=== PATIENT | female | born 1980 | race Caucasian/White ===

== ENCOUNTER 2020-07-21 13:12 | Emergency (ER) | payer SELFPAY ==
[~2020-07-21] VITALS: Ht 170.2 cm; Wt 85.0 kg
[~2020-07-21 13:12] MED LIST: HYDR-210 PO; IBUP-1060 PO; LABE100T5 PO; NIFE20CA PO; NIFE30TA15 PO; NITR100C62 PO; TRAM100T7 PO
[2020-07-21 13:39] VITALS: BP 141/86
--- NOTE | 2020-07-21 13:40 | PHYS DOC ---
Past Medical History Past Medical History: Anemia, Depression, Hypertension Past Surgical History: Cholecystectomy, Smoking Status: Current Every Day Smoker Alcohol Use: None Drug Use: None General Adult EDM: Chief Complaint: VAGINAL PROBLEM HPI: HPI: Patient is a 39 year old female who presents with odorous vaginal discharge for the last 2 weeks. She states she does have some vaginal itching. She would like to be treated for chlamydia and gonorrhea today. Patient denies abdominal pain, nausea, vomiting, diarrhea, back pain, urinary symptoms, fever. She has a history of it hypertension, anemia, depression, cholecystectomy, , smoker. Review of Systems: Review of Systems: Constitutional: Denies fever or chills. [] Eyes: Denies change in visual acuity. [] HENT: Denies nasal congestion or sore throat. [] Respiratory: Denies cough or shortness of breath. [] Cardiovascular: Denies chest pain or edema. [] GI: Denies abdominal pain, nausea, vomiting, bloody stools or diarrhea. [] : Denies dysuria. + Vaginal discharge [] Musculoskeletal: Denies back pain or joint pain. [] Integument: Denies rash. [] Neurologic: Denies headache, focal weakness or sensory changes. [] Endocrine: Denies polyuria or polydipsia. [] Lymphatic: Denies swollen glands. [] Psychiatric: Denies depression or anxiety. [] Heart Score: Risk Factors: Risk Factors: DM, Current or recent (<one month) smoker, HTN, HLP, family history of CAD, obesity. Risk Scores: Score 0 - 3: 2.5% MACE over next 6 weeks - Discharge Home Score 4 - 6: 20.3% MACE over next 6 weeks - Admit for Clinical Observation Score 7 - 10: 72.7% MACE over next 6 weeks - Early Invasive Strategies Allergies: Allergies: Allergies Coded Allergies Type Severity Reaction Last Updated Verified No Known Drug Allergies 02/08/14 No Physical Exam: PE: Constitutional: Well developed, well nourished, no acute distress, non-toxic appearance. [] HENT: Normocephalic, atraumatic, bilateral external ears normal, oropharynx moist, no oral exudates, nose normal. [] Eyes: PERRLA, EOMI, conjunctiva normal, no discharge. [] Neck: Normal range of motion, no tenderness, supple, no stridor. [] Cardiovascular:Heart rate regular rhythm, no murmur [] Lungs & Thorax: Bilateral breath sounds clear to auscultation [] Abdomen: Bowel sounds normal, soft, no tenderness, no masses, no pulsatile masses. [] Skin: Warm, dry, no erythema, no rash. [] Back: No tenderness, no CVA tenderness. [] Extremities: No tenderness, no cyanosis, no clubbing, ROM intact, no edema. [] Neurologic: Alert and oriented X 3, normal motor function, normal sensory function, no focal deficits noted. [] Psychologic: Affect normal, judgement normal, mood normal. Normal physical exam [] Current Patient Data: Labs: Laboratory Tests Test 07/21/20 13:22 POC Urine HCG, Qualitative Hcg negative (Negative) EKG: EKG: [] Radiology/Procedures: Radiology/Procedures: [] Course & Med Decision Making: Course & Med Decision Making Pertinent Labs and Imaging studies reviewed. (See chart for details) See HPI. Alert and oriented x4. Speaks in full clear sentences. Ambulatory with a steady gait. Afebrile. Abdomen soft and nontender. Patient is treated for chlamydia and gonorrhea today. She is educated that the results will come back in 48 hours to be called if something is positive. 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 Departure Departure Impression: Primary Impression: Vaginal discharge Additional Impressions: Sexually transmissible disease Bacterial vaginosis Disposition: HOME SELF CARE/HOMELESS Condition: STABLE Referrals: NO PCP (PCP) Patient Instructions: Bacterial Vaginosis, [id number], Sexually Transmitted Disease Additional Instructions: Follow-up with parachute folder if needed. Have your sexual partner treated also. Scripts Metronidazole (METRONIDAZOLE) 500 Mg Tablet 1 TAB PO BID for 7 Days, #14 TAB 0 Refills Prov: VICKI VILLANUEVA APRN 07/21/20 VICKI VILLANUEVA APRN Jul 21, 2020 13:40
[2020-07-21 13:42] LABS: BILIRUBIN,URINE SMALL (NEG); CLARITY,URINE CLEAR; NITRITE,URINE NEGATIVE (NEG); PROTEIN,URINE 100 mg/dL (NEG-TRACE)
[2020-07-21] MEDS ORDERED: AZITHROMYCIN 250 MG TABLET. PO ONE (13:45)
[2020-07-21] MEDS ORDERED: cefTRIAXone IM 250 MG VIAL IM ONE (13:45)
[2020-07-21 13:49] LABS: COLOR,URINE DK YELLOW
[2020-07-21 13:52] LABS: BACTERIA,URINE MANY /HPF (0-FEW)
[2020-07-21 13:56] LABS: RBC,URINE 0 /HPF (0-2)
[2020-07-21] MEDS ORDERED: METR-34 PO (14:08)
[2020-07-23 19:09] LABS: GC PROBE Negative (Negative)
== END 2020-07-21 14:50 | disposition home or self-care (01) ==
LOC: ER 13:12
DX: N76.0 Acute vaginitis (principal); B96.89 Other specified bacterial agents as the cause of diseases classified elsewhere; L29.2 Pruritus vulvae; F32.9 Major depressive disorder, single episode, unspecified; I10 Essential (primary) hypertension; D64.9 Anemia, unspecified; F17.200 Nicotine dependence, unspecified, uncomplicated; Z90.49 Acquired absence of other specified parts of digestive tract; Z98.890 Other specified postprocedural states
CPT/HCPCS: 81001; 81025; 87086; 87491; 87591; 96372; 99284; J0696; Q0111

== ENCOUNTER 2020-09-21 00:11 | Emergency (ER) | payer SELFPAY ==
[~2020-09-21] VITALS: Ht 170.2 cm; Wt 90.9 kg
[~2020-09-21 00:11] MED LIST changes: +METR-34 PO
[2020-09-21 00:25] VITALS: BP 159/106
--- NOTE | 2020-09-21 00:43 | PHYS DOC ---
Past Medical History Past Medical History: Anemia, Depression, Hypertension Past Surgical History: Cholecystectomy, Smoking Status: Current Every Day Smoker Additional Information: 1/2 pack/day Alcohol Use: None Drug Use: None General Adult EDM: Chief Complaint: BACK PAIN - NO INJURY HPI: HPI: Patient is a 39 year old female with past medical history of hypertension and stroke presents for back pain. She states that on evening she noticed a sharp pain on the lower left side of her back all of the sudden. She states that this pain does not radiate anywhere. She denies any injury. She rates his pain as a 7 out of 10. She says she has tried heating pad and this did not help. She states that it is worse when she lays on her left side and on her back, and gets better when she lays on her right side in flexion. She denies any numbness or tingling in any extremity, any loss of bowel or bladder function, any numbness between her legs, any headache, and any trouble walking. She states she has never had pain like this in the past. Review of Systems: Review of Systems: Constitutional: Denies fever or chills. [] Eyes: Denies change in visual acuity. [] HENT: Denies nasal congestion or sore throat. [] Respiratory: Denies cough or shortness of breath. [] Cardiovascular: Denies chest pain or edema. [] GI: Denies abdominal pain, nausea, vomiting, bloody stools or diarrhea. [] : Denies dysuria. [] Musculoskeletal: Positive back pain denies extremity pain [] Integument: Denies rash. [] Neurologic: Denies headache, focal weakness or sensory changes. [] Endocrine: Denies polyuria or polydipsia. [] Lymphatic: Denies swollen glands. [] Psychiatric: Denies depression or anxiety. [] Heart Score: Risk Factors: Risk Factors: DM, Current or recent (<one month) smoker, HTN, HLP, family history of CAD, obesity. Risk Scores: Score 0 - 3: 2.5% MACE over next 6 weeks - Discharge Home Score 4 - 6: 20.3% MACE over next 6 weeks - Admit for Clinical Observation Score 7 - 10: 72.7% MACE over next 6 weeks - Early Invasive Strategies Allergies: Allergies: Allergies Coded Allergies Type Severity Reaction Last Updated Verified I S O L A T I O N *CONTACT* Allergy Unknown 07/31/20 Yes No Known Medication Allergies Allergy Unknown 07/31/20 Yes Physical Exam: PE: Constitutional: Well developed, well nourished, no acute distress, non-toxic appearance. [] HENT: Normocephalic, atraumatic, bilateral external ears normal, oropharynx moist, no oral exudates, nose normal. [] Eyes: PERRLA, EOMI, conjunctiva normal, no discharge. [] Neck: Normal range of motion, no tenderness, supple, no stridor. [] Cardiovascular:Heart rate regular rhythm, no murmur [] Lungs & Thorax: Bilateral breath sounds clear to auscultation [] Abdomen: Bowel sounds normal, soft, no tenderness, no masses, no pulsatile masses. [] Skin: Warm, dry, no erythema, no rash. [] Back: tenderness to palpation over lumbar spine left paraspinal muscles, negative pain over C, T, and L spine spinous processes, reduced ROM of lumbar spine [] Extremities: No tenderness, no cyanosis, no clubbing, ROM intact, no edema. [] Neurologic: Alert and oriented X 3, normal motor function, normal sensory function, no focal deficits noted. [] Psychologic: Affect normal, judgement normal, mood normal. [] Current Patient Data: Labs: Laboratory Tests Test 09/21/20 00:22 POC Urine HCG, Qualitative Hcg negative (Negative) Vital Signs: Vital Signs Date Time Temp Pulse Resp B/P (MAP) Pulse Ox O2 Delivery O2 Flow Rate FiO2 09/21/20 00:25 97.4 89 18 159/106 (123) 100 Room Air 97.4 EKG: EKG: [] Radiology/Procedures: Radiology/Procedures: [] Course & Med Decision Making: Course & Med Decision Making Pertinent Labs and Imaging studies reviewed. (See chart for details) [] Dragon Disclaimer: Librado Disclaimer: This electronic medical record was generated, in whole or in part, using a voice recognition dictation system. Departure Departure Impression: Primary Impression: Back pain Disposition: 01 DC HOME SELF CARE/HOMELESS Condition: STABLE Referrals: NO PCP (PCP) Patient Instructions: Back Pain, Adult Scripts Cyclobenzaprine Hcl (CYCLOBENZAPRINE HCL) 10 Mg Tablet 1 TAB PO QHS, #30 TAB Prov: KIMBERLY COE DO 09/21/20 Lidocaine (Lidocaine PATCH ) 1 Each Adh..patch 1 EACH TP DAILY for FOR LOCAL PAIN, #10 PATCH REMOVE AFTER 12 HOURS Prov: KIMBERLY COE DO 09/21/20 KIMBERLY COE DO Sep 21, 2020 00:43
[2020-09-21] MEDS ORDERED: CYCL10TA2 PO (00:52)
[2020-09-21] MEDS ORDERED: LIDO700A21 TP (00:52)
== END 2020-09-21 01:02 | disposition home or self-care (01) ==
LOC: ER 00:11
DX: M54.5 Low back pain (principal); I10 Essential (primary) hypertension; F17.200 Nicotine dependence, unspecified, uncomplicated; Z90.49 Acquired absence of other specified parts of digestive tract; Z91.041 Radiographic dye allergy status
CPT/HCPCS: 81025; 99283